=== PATIENT | female | born 1985 | race American Indian/Alaskan Native ===

== ENCOUNTER 2021-10-28 10:44 | Emergency (ER) | payer SELFPAY ==
[2021-10-28 11:00] VITALS: BP 128/84
--- NOTE | 2021-10-28 12:31 | Emergency Department Report ---
ED Lower Extremity HPI - General Chief Complaint: Extremity Problem,Nontraumatic Stated Complaint: LEFT SHOULDER PAIN Time Seen by Provider: 10/28/21 12:27 Source: EMS Mode of arrival: Ambulatory Limitations: No Limitations - Related Data Allergies Allergy/AdvReac Type Severity Reaction Status Date / Time No Known Allergies Allergy Verified 10/28/21 11:00 ED Review of Systems ROS: Stated complaint: LEFT SHOULDER PAIN Other details as noted in HPI ED Physical Exam - General Limitations: No Limitations ED Course Vital Signs 10/28/21 10:58 Temperature 99 F Pulse Rate 93 H Respiratory 20 Rate Blood Pressure 128/84 [Right] O2 Sat by Pulse 98 Oximetry Critical care attestation.: If time is entered above; I have spent that time in minutes in the direct care of this critically ill patient, excluding procedure time. ED Disposition Condition: Stable
[2021-10-28] MEDS ORDERED: dexAMETHasone 4 MG/ML VIAL IM ONE (12:37)
--- NOTE | 2021-10-28 12:57 | Emergency Department Report ---
ED Upper Extremity Inj HPI - General Chief Complaint: Extremity Problem,Nontraumatic Stated Complaint: LEFT SHOULDER PAIN Time Seen by Provider: 10/28/21 12:27 Source: EMS Mode of arrival: Ambulatory Limitations: No Limitations - History of Present Illness Initial Comments: 36 yo comes to ER with 3 day hx left scapular, left side, pain. worse with movem ent. no trauma. this AM her arm was stiff on wakening and she called 911. no cp. no sob. no fever. no chills. Complaint: Injury to:: left -: Gradual, days(s) Other Extremity Injury: Shoulder: Left Other Injuries: none Place: home Improves With: none Associated Symptoms: denies other symptoms - Related Data Previous Rx's Medication Instructions Recorded Last Taken Type Cyclobenzaprine [Flexeril] 10 mg PO TID PRN #10 tablet 10/28/21 Unknown Rx Ibuprofen [Motrin] 800 mg PO Q8HR PRN #30 tablet 10/28/21 Unknown Rx Allergies Allergy/AdvReac Type Severity Reaction Status Date / Time No Known Allergies Allergy Verified 10/28/21 11:00 ED Review of Systems ROS: Stated complaint: LEFT SHOULDER PAIN Other details as noted in HPI Comment: All other systems reviewed and negative ED Past Medical Hx - Past Medical History Previous Medical History?: No - Surgical History Past Surgical History?: No - Family History Family history: no significant - Social History Smoking Status: Current Every Day Smoker Substance Use Type: Alcohol - Medications Home Medications: Home Medications Medication Instructions Recorded Confirmed Last Taken Type Cyclobenzaprine [Flexeril] 10 mg PO TID PRN #10 tablet 10/28/21 Unknown Rx Ibuprofen [Motrin] 800 mg PO Q8HR PRN #30 tablet 10/28/21 Unknown Rx ED Physical Exam - General Limitations: No Limitations General appearance: alert, in no apparent distress - Head Head exam: Present: atraumatic, normocephalic - Eye Eye exam: Present: normal appearance - ENT ENT exam: Present: mucous membranes moist - Neck Neck exam: Present: normal inspection - Respiratory Respiratory exam: Present: normal lung sounds bilaterally. Absent: respiratory distress - Cardiovascular Cardiovascular Exam: Present: regular rate, normal rhythm. Absent: systolic murmur, diastolic murmur, rubs, gallop - GI/Abdominal GI/Abdominal exam: Present: soft, normal bowel sounds - Extremities Exam Extremities exam: Present: normal inspection - Back Exam Back exam: Present: normal inspection - Neurological Exam Neurological exam: Present: alert, oriented X3 - Psychiatric Psychiatric exam: Present: normal affect, normal mood - Skin Skin exam: Present: warm, dry, intact, normal color. Absent: rash ED Course Vital Signs 10/28/21 10:58 Temperature 99 F Pulse Rate 93 H Respiratory 20 Rate Blood Pressure 128/84 [Right] O2 Sat by Pulse 98 Oximetry ED Medical Decision Making - Medical Decision Making Vital Signs 10/28/21 10:58 Temperature 99 F Pulse Rate 93 H Respiratory 20 Rate Blood Pressure 128/84 [Right] O2 Sat by Pulse 98 Oximetry pain reproducible with movement. medicated with decadron neurovasc intact educated on ortho follow up dc home with dc plan of care including diet, meds, activity and follow up. she verbalizes understanding of plan of care. - Differential Diagnosis musculoskeltal pain Critical care attestation.: If time is entered above; I have spent that time in minutes in the direct care of this critically ill patient, excluding procedure time. ED Disposition Clinical Impression: Shoulder pain Disposition: HOME / SELF CARE / HOMELESS Is pt being admited?: No Does the pt Need Aspirin: No Condition: Stable Instructions: Shoulder Pain Additional Instructions: sling for comfort follow up with ortho for follow up referral below meds as ordered for pain warm compresses may help with discomfort Prescriptions: Cyclobenzaprine [Flexeril] 10 mg PO TID PRN #10 tablet PRN Reason: Muscle Spasm Ibuprofen [Motrin] 800 mg PO Q8HR PRN #30 tablet PRN Reason: Pain, Moderate (4-6) Referrals: NATY ARAUJO MD [Staff Physician] - 3-5 Days Forms: Work/School Release Form(ED) Time of Disposition: 12:57
== END 2021-10-28 13:39 | disposition home or self-care (01) ==
LOC: ED 10:44
DX: M25.512 Pain in left shoulder (principal); F17.200 Nicotine dependence, unspecified, uncomplicated
CPT/HCPCS: 96372; 99283; J1100